=== PATIENT | male | born 1985 | race Hispanic/Latino ===

== ENCOUNTER 2021-04-27 17:08 | Emergency (ER) | payer SELFPAY ==
[~2021-04-27] VITALS: Ht 426.7 cm; Wt 68.0 kg
[2021-04-27 17:18] VITALS: BP 137/94
== END 2021-04-27 21:33 | disposition left against medical advice (07) ==
LOC: EDH 17:08
DX: R00.2 Palpitations (principal); Z53.21 Procedure and treatment not carried out due to patient leaving prior to being seen by health care provider
CPT/HCPCS: 93005